=== PATIENT | male | born 1985 | race African-American/Black ===

== ENCOUNTER → 2018-07-09 | Emergency (ER) | payer MEDICAID, OTHER ==
[~2018-07-09] VITALS: Ht 180.3 cm; Wt 79.4 kg
[~2018-07-09] MED LIST: AZITHROMYCIN250 MG ORAL; AZITHROMYCIN500 MG ORAL; Bicillin LA 2.4MMU/4ML SYR IM ONE; Lidocaine 1% MPF 10mg/ml 5ml INJ ONE
[2018-07-09 17:00] VITALS: BP 140/74
--- NOTE | 2018-07-09 17:17 | Emergency Room Report ---
History of Present Illness General Chief Complaint: General Complaint Source: Patient Present Illness HPI 33-year-old male transgender preferring to be called female history of HIV positive currently on no medication here complaining of being exposed to syphilis, gonorrhea, chlamydia by his her partner. Patient reports that his/ her partner was recently positive for syphilis, gonorrhea, chlamydia. Patient also complaining of painful urination and dementia area. Eyes flank pain, abdominal pain, nausea vomiting, fever or chills. Denies any penile lesion or discharge. Patient reports that he has been out of his medication for his HIV positive status for a few weeks as he is in the process of establishing a new primary care provider Allergies: Coded Allergies: NO KNOWN ALLERGIES (Unverified Allergy, Unknown, 07/29/15) Patient History Past Medical History: see triage record Past Surgical History: unable to obtain Pertinent Family History: unable to obtain Immunizations: UTD Reviewed Nursing Documentation: PMH: Agreed; PSxH: Agreed Nursing Documentation-PMH Hx Cardiac Problems: No - HIV + Review of Systems All Other Systems: negative except mentioned in HPI Physical Exam Vital Signs Date Time Temp Pulse Resp B/P (MAP) Pulse Ox O2 Delivery O2 Flow Rate FiO2 07/09/18 16:53 98.2 116 18 140/74 97 Room Air Sp02 EP Interpretation: reviewed, normal General Appearance: normal inspection, well appearing, no apparent distress Head: normocephalic Eyes: bilateral eye normal inspection, bilateral eye PERRL ENT: normal ENT inspection, normal pharynx Neck: normal inspection, supple Respiratory: normal inspection, lungs clear, no wheezing Cardiovascular #1: normal inspection, no edema, no murmur Gastrointestinal: normal inspection, non tender, soft Rectal: deferred Genitourinary: deferred Musculoskeletal: normal inspection, back normal, digits/nails normal Neurologic: normal inspection, alert, oriented x3, responsive Psychiatric: normal inspection, judgement/insight normal, memory normal Skin: normal inspection, normal color, no rash, warm/dry Lymphatic: normal inspection, no adenopathy Medical Decision Making PA Attestation all diagnoses and treatment plans were reviewed and discussed with the supervising physician Dr. Maier Diagnostic Impression: Primary Impression: Exposure to syphilis Additional Impressions: Exposure to chlamydia Exposure to gonorrhea Dysuria ER Course 33-year-old male transgender preferring to be called female history of HIV positive currently on no medication here complaining of being exposed to syphilis, gonorrhea, chlamydia by his her partner. Patient reports that his/ her partner was recently positive for syphilis, gonorrhea, chlamydia. Patient also complaining of painful urination and dementia area. Eyes flank pain, abdominal pain, nausea vomiting, fever or chills. Denies any penile lesion or discharge. Patient reports that he has been out of his medication for his HIV positive status for a few weeks as he is in the process of establishing a new primary care provider Ddx considered but are not limited to syphilis, gonorrhea, chlamydia, urinary tract infection Vital signs: are WNL, pt. is afebrile H&PE are most consistent with syphilis, gonorrhea, chlamydia, urinary tract infection ORDERS:UA, GC chlamydia, since then 250 mg IM, penicillin G, azithromycin 500 mg ED INTERVENTIONS: None required at this time. DISCHARGE: At this time pt. is stable for d/c to home. Will provide printed patient care instructions, and any necessary prescriptions. Care plan and follow up instructions have been discussed with the patient prior to discharge. after leaving the emergency room patient comes back with her partner her partner is very argumentative wanting to talk to the profile has been told that as long as it is okay for the patient for department to be in the room provider can talk to both of them and patient agrees for her partner to be in the room. Saline the patient has been called being called Bess incident of her and keeps mentioning the [employer] with her many sternal to emergency room, and we need to start taking the medication for HIV. Patient had previously has not verbalized that she has not taken any medication for a long time and understood that she needs to follow-up with the primary care provider and given a list of centers to call. Her partner kicks and sustained a we need to give her at least couple pills for tonight and has been told that we cannot do anything against the law, patient's partner does not understand that we cannot provide or prescribe HIV medication in the emergency room setting should keep asking why We just a very primary care asked the hospital however before leaving [place] and [place]ill[place] without emergency room setting cannot be used as primary care and they need to go to primary care and specialty clinics for management of HIV 1+ blood in UA and 1+ leuk Last Vital Signs Date Time Temp Pulse Resp B/P (MAP) Pulse Ox O2 Delivery O2 Flow Rate FiO2 12/15/18 16:53 98.2 116 18 140/74 97 Room Air Disposition: HOME, SELF-CARE Condition: Stable Scripts Azithromycin (AZITHROMYCIN) 500 Mg Tablet 2 TAB ORAL ONCE for 1 Day, #2 TAB Prov: Wilder Thakkar 07/09/18 Patient Instructions: Chlamydia, Male, Gonorrhea, Syphilis Additional Instructions: tests for Chlamydia gonorrhea and syphilis can be done at urgent care setting or family practitioner. Just stands that he or she needs to be treated as partner is positive for all 3 patient prefers injection of Rocephin as well as injection of penicillin. Wilder Thakkar Jul 09, 2018 17:17
[2018-07-09 17:42] LABS: APPEARANCE,URINE CLEAR; BILIRUBIN, URINE 1+ (NEGATIVE); COLOR,URINE BROWN; GLUCOSE, URINE (UA) NEGATIVE (NEGATIVE); KETONES,URINE 1+ (NEGATIVE); LEUKOCYTE ESTERASE ,URINE 1+ (NEGATIVE); NITRITE,URINE NEGATIVE (NEGATIVE); PH,URINE 5 (4.5-8.0); PROTEIN,URINE 2+ (NEGATIVE); UROBILINOGEN,URINE 8 MG/DL (0.0-1.0)
[2018-07-09 18:02] VITALS: BP 138/98
== END | disposition home or self-care (01) ==
LOC: EMR 17:36
DX: Z20.2 Contact with and (suspected) exposure to infections with a predominantly sexual mode of transmission (principal); R30.0 Dysuria; B20 Human immunodeficiency virus [HIV] disease; F03.90 Unspecified dementia, unspecified severity, without behavioral disturbance, psychotic disturbance, mood disturbance, and anxiety
CPT/HCPCS: 81001; 96372; 99283; J0696